=== PATIENT | male | born 1965 | race Caucasian/White ===

== ENCOUNTER 2018-07-25 11:25 | Emergency (ER) | payer OTHER ==
[~2018-07-25] VITALS: Wt 100.3 kg
[2018-07-25 11:28] VITALS: BP 148/81; PULSE 60; RESP 18
--- NOTE | 2018-07-25 12:10 | ERD ---
ER Documentation Chief Complaint Chief Complaint BACK PAIN RAD LEG HPI 53-year-old male, previously healthy, presents the emergency department, complaining of 3 days with worsening of lower back pain radiating to the right lower extremity. The patient refers that the pain was probably caused by lifting heavy objects at work. No history of acute direct injury. No medications taken at this time. The patient denies fevers, no chills, no inc ontinence, no distal weakness, numbness or tingling. No medications taken at this time. ROS All systems reviewed and are negative except as per history of present illness. Medications Home Meds Active Scripts Baclofen* (Baclofen*) 10 Mg Tablet, 10 MG PO QHS, #7 TAB Prov:ELLIOT CARLIN MD 07/25/18 Acetaminophen* (Tylenol*) 325 Mg Tablet, 2 TAB PO Q8 PRN for PAIN AND OR ELEVATED TEMP, #20 TAB Prov:ELLIOT CARLIN MD 07/25/18 Ibuprofen* (Motrin*) 600 Mg Tab, 600 MG PO Q8 for 5 Days, #15 TAB Prov:ELLIOT CARLIN MD 07/25/18 Allergies Allergies: Coded Allergies: No Known Allergy (Unverified , 11/06/14) PMhx/Soc Medical and Surgical Hx: pt denies Medical Hx, pt denies Surgical Hx Hx Alcohol Use: No Hx Substance Use: No Hx Tobacco Use: No Smoking Status: Never smoker FmHx Family History: No diabetes, No coronary disease Physical Exam Vitals Vital Signs Date Temp Pulse Resp B/P (MAP) Pulse Ox O2 O2 Flow FiO2 Time Delivery Rate 07/25/18 97.5 60 18 148/81 99 11:28 (103) Physical Exam Const: No acute distress Head: Atraumatic Eyes: Normal Conjunctiva ENT: Normal External Ears, Nose and Mouth. Neck: Full range of motion. No meningismus. Resp: Clear to auscultation bilaterally Cardio: Regular rate and rhythm, no murmurs Abd: Soft, non tender, non distended. Normal bowel sounds Skin: No petechiae or rashes Back: Normal inspection, no midline or flank tenderness. Bilateral lumbar muscle spasm, with decreased range of motion for lateral rotation due to pain. Ext: No cyanosis, or edema Neur: Awake and alert Psych: Normal Mood and Affect Results 24 hrs Current Medications Medications Dose Sig/Jaime Start Time Status Last (Trade) Ordered Route PRN Stop Time Admin Dose Reason Admin Ketorolac 30 mg ONCE STAT 07/25/18 DC 07/25/18 Tromethamine IM 12:18 12:26 (Toradol) 07/25/18 12:20 Procedures/MDM Differential diagnosis include but not limited to: lumbar sprain/strain, sciatica, herniated disk, UTI less likely pyelo, kidney stone. Neurovascular exam grossly intact. no clinical findings suggestive of acute infectious process, no acute deformity, no edema, no rashes. Physical examination and clinical presentation consistent most likely with acute back pain most likely due to lumbar strain. During the ED course the patient received treatment with Toradol IM presenting overall improvement of the symptoms. Results and clinical impression discussed with the patient who agrees with management. The patient is stable to be treated outpatient and will be discharged home with recommendations and close monitoring The patient was instructed to follow up with the primary care provider in the next 48h. If symptoms persist, worsen or new symptoms develop, then patient should return to the ED immediately. Instructions explained and given to patient with acknowledgment and demonstrated understanding. Disclaimer: Inadvertent spelling and grammatical errors are likely due to EHR/dictation software use and do not reflect on the overall quality of patient care. Also, please note that the electronic time recorded on this note does not necessarily reflect the actual time of the patient encounter. Departure Diagnosis: Primary Impression: Strain of lumbar region Condition: Stable Additional Instructions: Muchas opal por [facility] para roach servicio. Esperamos que en roach visita a la baldemar de emergencia roach problema medico haya sido solucionado y que se sienta mucho mejor. Para estar seguros que roach mejoria sigue en proceso, le pedimos el favor de hacer won margarito de seguimiento medico con roach doctor primario en los proximos 2-4 montoya. Lleve con usted estos documentos y las medicinas recetadas. Si travon sintomas empeoran, NO SE ESPERE, por favor regrese a baldemar de emergencia INMEDIATAMENTE. En emily que usted no tenga un mdico de atencin primaria: Llame al mdico o clnica comunitaria de referencia que aparece abajo rhonda las horas de consultorio para hacer won margarito para que le vean. CLINICAS: [facility] [phone] [place] [phone] [facility] [phone] [facility] [phone] [place] [id number] [phone] [facility] [phone] ELLIOT ABDALLA MD Jul 25, 2018 12:10
[2018-07-25] MEDS ORDERED: KETOROLAC 30 MG INJ IM STA (12:18)
[2018-07-25] MEDS ORDERED: BACL10TA PO (12:32)
[2018-07-25] MEDS ORDERED: ACET325T33 PO (12:32)
[2018-07-25] MEDS ORDERED: IBUP-1542 PO (12:32)
== END 2018-07-25 13:33 | disposition home or self-care (01) ==
LOC: FTE 11:25
DX: S39.012A Strain of muscle, fascia and tendon of lower back, initial encounter (principal); X58.XXXA Exposure to other specified factors, initial encounter; Y92.9 Unspecified place or not applicable
CPT/HCPCS: 96372; 99284; J1885